=== PATIENT | male | born 1990 | race Two or more races ===

== ENCOUNTER 2018-07-01 20:46 | Emergency (ER) | payer SELFPAY ==
[~2018-07-01] VITALS: Ht 195.6 cm; Wt 95.3 kg
[2018-07-01] MEDS ORDERED: LIDOCAINE HCL 2% 20 ML VIAL TP ONE (21:45)
[2018-07-01] MEDS ORDERED: OXYCODONE/APAP 5-325 MG TABLET PO ONE (21:45)
[2018-07-01] MEDS ORDERED: CEPHALEXIN MONOHYDRATE 500 MG CAPSULE PO ONE (21:45)
[2018-07-01] MEDS ORDERED: SODIUM BICARBONATE 4.2 % (NEUT) 5 ML VIAL TP ONE (21:45)
[2018-07-01] MEDS ORDERED: ONDANSETRON ODT 4 MG TAB.RAPDIS SL ONE (21:45)
[2018-07-01] MEDS ORDERED: ONDANSETRON ODT 4 MG TAB.RAPDIS ONE (21:56)
[2018-07-01] MEDS ORDERED: CEPHALEXIN MONOHYDRATE 500 MG CAPSULE ONE (21:56)
[2018-07-01] MEDS ORDERED: OXYCODONE/APAP 5-325 MG TABLET ONE (21:57)
[2018-07-01] MEDS ORDERED: BISOPROLOL (21:57)
[2018-07-01] MEDS ORDERED: RAMIPRIL (21:57)
--- NOTE | 2018-07-01 23:30 | NUR ---
Patient discharged to home in stable conditon. Written and verbal after care instructions given. Patient verbalizes understanding of instructions. Pt ambulated out of ER in steady gait accompanied by friend who will drive home. All belongings with pt. VSS. NAD noted.
[2018-07-01 23:32] VITALS: BP 144/79
== END 2018-07-01 23:32 | disposition home or self-care (01) ==
LOC: ER 20:47
DX: L60.0 Ingrowing nail (principal); I10 Essential (primary) hypertension
CPT/HCPCS: A4663; J3490; Q0162